=== PATIENT | male | born 1980 | race African-American/Black ===

== ENCOUNTER 2016-11-22 11:39 | Emergency (ER) | payer OTHER ==
[2016-11-22] MEDS ORDERED: OPTIRAY 350 100 ML VIAL HMH IV ONE (11:40)
[2016-11-22] MEDS ORDERED: ACETAMINOPHEN 325 MG TAB ONE (12:04)
[2016-11-22] MEDS ORDERED: SODIUM CHLORIDE 0.9% 1,000 ML ONE (12:18)
[2016-11-22] MEDS ORDERED: NEB-ALBUTEROL 2.5 MG/3 ML INH ONE (14:46)
[2016-11-22] MEDS ORDERED: DUONEB INH ONE (14:46)
== END 2016-11-22 16:42 | disposition home or self-care (01) ==
LOC: ER 11:39
DX: J20.8 Acute bronchitis due to other specified organisms (principal); J45.909 Unspecified asthma, uncomplicated; Z87.891 Personal history of nicotine dependence
CPT/HCPCS: 71020; 71260; 80053; 82553; 82803; 83880; 84484; 85025; 87804; 94640; 96360; 96361